=== PATIENT | female | born 1950 | race Caucasian/White ===

== ENCOUNTER → 2017-03-17 | Outpatient (CLI) | payer OTHER ==
[~2017-03-17] MED LIST: ASPIRIN PO; ATRAC-TAIN142 GM EXT; AUGMENTIN PO; AVALIDE PO; BACTROBAN15 GM TOP; BACTROBAN22 GM TP; BENADRYL PO; BP MED; CIPRO PO; CLEOCIN PO; COLACE PO; DOLOPHINE HCL5 MG; DOMEBORO PACKET1 PKT TOP; IBUPROFEN; KCL; LASIX PO; LEVAQUIN PO; LISINOPRIL20 MG PO; LORTAB 5/500 TA1 TA1 PO; METHADONE; NICOTINE TRANSD14 MG EXT; NON-ASPIRIN325 MG PO; NORVASC10 MG PO; PATIENT'S PHARMACY; PHYSICIAN; POTASSIUM PO; PREDNISONE PO; PREDNISONE10 MG PO; PROAIR HFA8.5 GM INH; SYMBICORT INH; ZOSYN 3.373.375 G/VI IV; [UNRECOGNIZED DRUG - OTHER] TOP
--- NOTE | ~2017-03-17 | US5 ---
[facility] RADIOLOGY TEXT RESULTS PATIENT: KATRIN HERNANDEZ LOCATION: [facility] : 54 UNIT #: [id number] AGE: [address]: Vinnie Duncan MD SEX: F ORDER DR: [id number] [place] [id number] O MR#: [id number] Acc #: [id number] NAME: KATRIN HERNANDEZ : 1950 SEX: F STUDY DATE/TIME: 03/17/2017 8:56 UNIT: SGUS ROOM: STUDY DESCRIPTION: US Abdominal Complete Attending Physician: Vinnie Duncan III, M.D. Referring Physician: Vinnie Duncan III, M.D. Ordering Physician: Vinnie Duncan III, M.D. Primary Care Physician: Artie Coughlin M.D. MEDICAL IMAGING REPORT This report is preliminary unless electronic signature is present. EXAM Abdominal ultrasound INDICATIONS Hepatitis C. Observation for cirrhosis and hepatocellular carcinoma. PROCEDURE Naqvi-scale and Doppler imaging of the abdomen. COMPARISON 03/08/2016 FINDINGS Visualized portions of pancreas are unremarkable. The liver is difficult to evaluate on this study. It measures 17.7 cm in length and is not frankly cirrhotic. No obvious liver mass on submitted images. Right kidney measures 9 cm in length. Previous cholecystectomy. Common duct measures 4 mm. Submitted images of the abdominal aorta inferior vena cava are unremarkable. Left kidney measures 8.8 cm. No hydronephrosis. Spleen measures 10.3 cm. IMPRESSION 1. Liver is difficult to evaluate on this study, but is not frankly cirrhotic, and there is no liver mass seen on the study. 2. Otherwise, negative abdominal ultrasound. 3. Previous cholecystectomy. Dictated by... Josh Blount M.D. THIS IS AN ELECTRONICALLY VERIFIED REPORT [facility] RADIOLOGY TEXT RESULTS PATIENT: KATRIN HERNANDEZ LOCATION: [facility] : 54 UNIT #: [id number] AGE: [address]: Vinnie Duncan MD SEX: F ORDER DR: Josh Blount M.D. at 03/18/2017 7:11 AM ANTOINETTE/nupur TD: 03/17/2017 16:00 JOB #: [id number] MEDICAL IMAGING REPORT Page 1 of 1
== END | disposition home or self-care (01) ==
LOC: SGUS 08:36
DX: B18.2 Chronic viral hepatitis C (principal); Z90.49 Acquired absence of other specified parts of digestive tract
CPT/HCPCS: 76700

== ENCOUNTER 2017-04-07 09:53 | Emergency (ER) | payer OTHER ==
[~2017-04-07] VITALS: Ht 149.9 cm; Wt 71.5 kg
[~2017-04-07 09:53] MED LIST changes: -KCL; +KCL PO
[2017-06-05] MEDS ORDERED: LASIX PO (09:08)
[2017-06-05] MEDS ORDERED: METHADOSE40 M1 PO (09:10)
[2017-06-05] MEDS ORDERED: METHADONE HCL10 MG PO (09:10)
== END 2017-04-07 10:48 | disposition left against medical advice (07) ==
LOC: CED 09:53 → CFTX 09:53
DX: Z53.21 Procedure and treatment not carried out due to patient leaving prior to being seen by health care provider (principal)